=== PATIENT | male | born 1985 | race Caucasian/White ===

== ENCOUNTER 2017-07-20 18:31 | Emergency (ER) | payer OTHER ==
[~2017-07-20] VITALS: Ht 185.4 cm; Wt 72.6 kg
[~2017-07-20 18:31] MED LIST: MIRALAX17 GM PO; NORCO 5-325 TA1 EACH PO; PERCOCET 5-3251 EACH PO; ZOFRAN ODT4 MG PO; ZOFRAN4 MG PO
[2017-07-20] MEDS ORDERED: IBUPROFEN600 MG PO (19:06)
== END 2017-07-20 19:24 | disposition home or self-care (01) ==
LOC: ED 18:31
PROC: 2W3CX1Z Immobilization of Right Lower Arm using Splint (ICD-10-PCS; principal; 2017-07-20)
DX: S62.306A Unspecified fracture of fifth metacarpal bone, right hand, initial encounter for closed fracture (principal); F41.9 Anxiety disorder, unspecified; F17.200 Nicotine dependence, unspecified, uncomplicated; Z90.49 Acquired absence of other specified parts of digestive tract; Z79.899 Other long term (current) drug therapy; W18.30XA Fall on same level, unspecified, initial encounter
CPT/HCPCS: 29125; 73130; 99283

== ENCOUNTER 2022-11-10 20:41 | Emergency (ER) | payer BC, OTHER ==
[~2022-11-10] VITALS: Ht 185.4 cm; Wt 77.1 kg
[~2022-11-10 20:41] MED LIST changes: +IBUPROFEN600 MG PO; +PROTONIX40 MG PO; +ZOFRAN8 MG PO
== END 2022-11-10 23:06 | disposition home or self-care (01) ==
LOC: ED 20:41
DX: R10.31 Right lower quadrant pain (principal); F17.200 Nicotine dependence, unspecified, uncomplicated; Z79.899 Other long term (current) drug therapy
CPT/HCPCS: 36415; 74177; 80053; 81003; 84443; 85025; 99284-25; Q9967

== ENCOUNTER 2025-07-31 11:47 | Day surgery (SDC) | payer BC ==
[~2025-07-31] VITALS: Ht 185.4 cm; Wt 68.0 kg
[~2025-07-31 11:47] MED LIST changes: +IBLOOD GLUCOSE TEST STRIP 1 EA TEST VI PRN; +LACTATED RINGER'S 1,000 ML IV SCH; +LIDOCAINE HCL 1% 5 ML SDV INJ ONE; +TUMS X-STR300 MG PO
[2025-07-31 12:02] VITALS: BP 111/76
[2025-07-31] MEDS ORDERED: GLUCAGON,HUMAN RECOMBINANT 1 MG/ML VIAL ONE (14:09)
[2025-07-31] MEDS ORDERED: LIDOCAINE HCL 2% 5 ML SDV ONE (14:09)
[2025-07-31] MEDS ORDERED: fentaNYL citrate 100 MCG/2 ML VIAL ONE (15:01)
--- NOTE | 2025-07-31 15:53 | NUR ---
07/31/25 1553 Sheets,Cora 1527 PT ARRIVED TO PACU ON 6L VIA MASK, ORAL AIRWAY IN PLACE AND RESP EVEN AND UNLABORED. VSS. 1530 PT STARTS COUGHING AND ORAL AIRWAY REMOVED.
[2025-07-31 16:06] VITALS: BP 115/82
--- NOTE | 2025-08-01 08:46 | OR ---
[facility] [address] [facility] [place], [place] [address] Signed DATE OF OPERATION: 07/31/2025 SURGEON: Paolo Vega DO PREOPERATIVE DIAGNOSES: 1. Crohn's disease by history. 2. Gastroesophageal reflux disease symptoms. POSTOPERATIVE DIAGNOSES: 1. Crohn's disease by history. 2. Gastroesophageal reflux disease symptoms. 3. LA grade B distal esophagitis. 4. Punctate gastritis. 5. Nonspecific colitis. PROCEDURE PERFORMED: 1. Esophagogastroduodenoscopy with biopsy of the GE junction and random gastric biopsy. 2. Colonoscopy with cold forceps biopsy at 35 cm. ANESTHESIA: IV sedation. ESTIMATED BLOOD LOSS: Scant. DRAINS: None. COMPLICATIONS: None. DESCRIPTION OF PROCEDURE: The patient was brought to the GI lab, placed in the supine position. After induction of IV sedation through preanesthetized oropharynx and a bite block, the Olympus video endoscope was introduced into the mouth, directed to the length of esophagus into the distal esophagus. Some LA grade B esophagitis was noted. No ulcerations were appreciated. Random biopsies of the GE junctions were then taken, passed off the field for pathologic review. Scope was then introduced into the stomach. Stomach was insufflated and exploration was then carried out. Some moderate distal gastritis was noted, but no evidence of ulceration was noted. Scope was advanced through the pylorus, Electronically Signed By: PAOLO VEGA DO 08/01/25 0846 PATIENT NAME: JEWELS MARTIN TATI OPERATIVE REPORT DATE OF : 85 REPORT #: [id number] PHYSICIAN: PAOLO VEGA DO PCP: NOHEMY RENE PA-C REPORT IS CONFIDENTIAL AND NOT TO BE RELEASED WITHOUT AUTHORIZATION [facility] [address] [place], [place] [address] Signed 1st and 2nd portion of duodenum essentially unremarkable. Scope was then brought back into the stomach. Random gastric biopsies were taken and passed off for pathologic review. The remainder of the gastric unremarkable. Stomach was decompressed and the scope was withdrawn. The patient was then placed in the left lateral position, padded to the satisfaction of anesthesia. The Olympus video colonoscope was then introduced into the rectum under direct visualization while insufflating and the scope was advanced through the rectosigmoid, sigmoid colon, descending colon, transverse colon, ascending colon and into the cecum. The colon was insufflated and exploration of mucosal surfaces was carried out. The ascending colon and cecum had no intrinsic or extrinsic masses appreciated. Scope was then brought back to the transverse colon. No intrinsic or extrinsic masses were noted. The scope was then brought back into the descending colon, some nonspecific colitis was noted but no ulcerations were appreciated. No other intrinsic or extrinsic masses were appreciated. Scope was brought back into the sigmoid colon where mucus type material was encountered with nonspecific colitis. Random cold forceps biopsies taken at 35 cm, passed off the field for pathologic review. Rectum and the sigmoid were essentially unremarkable other than this mucosal irritation and inflammation. No other intrinsic or extrinsic masses were noted. The rectosigmoid was unremarkable. The rectum was unremarkable. The scope was withdrawn. The patient tolerated the procedure well and taken to recovery room in satisfactory condition. Paolo Vega DO RS/MODL /[id number] Copies: ~ Electronically Signed By: PAOLO VEGA DO 08/01/25 0846 PATIENT NAME: JEWELS MARTIN OPERATIVE REPORT DATE OF : 85 REPORT #: [id number] PHYSICIAN: PAOLO VEGA DO PCP: NOHEMY RENE PA-C REPORT IS CONFIDENTIAL AND NOT TO BE RELEASED WITHOUT AUTHORIZATION
--- NOTE | 2025-08-02 15:48 | PATH ---
[facility] [address] [place], [place] [address] Signed SPECIMEN(S): A EG JUNCTION BIOPSY SPECIMEN(S): B STOMACH BIOPSY SPECIMEN(S): C COLON BIOPSY, 35 CM SPECIMEN SOURCE: A. EG JUNCTION BIOPSY B. STOMACH BIOPSY C. COLON BIOPSY, 35 CM CLINICAL HISTORY: GERD, screening colonoscopy DX: Nonspecific colitis A-C) biopsy FINAL PATHOLOGIC DIAGNOSIS: A. EG junction biopsy: - Benign gastric mucosa with focal slight chronic inflammation. - Negative for specialized intestinal metaplasia or dysplasia. B. Stomach biopsy: - Benign gastric mucosa with focal slight chronic inflammation. - Negative for evidence of Helicobacter organisms on routine HE-stained sections. C. Colon biopsy at 35 cm: - Benign colonic mucosa, negative for pathologic inflammation. JVR MICROSCOPIC EXAMINATION: Histologic sections of all submitted blocks are examined by light microscopy. These findings, together with the gross examination, support the pathologic diagnosis. GROSS DESCRIPTION: A. The specimen, labeled and designated "Adriel, EG junction biopsy," is received in formalin and consists of one khalil soft tissue fragment, 0.3 cm. Entirely submitted in (A1). B. The specimen, labeled and designated "Adriel, stomach biopsy," is received in formalin and consists of one khalil soft tissue fragment, 0.8 cm. Entirely submitted in (B1). C. The specimen, labeled and designated "Adriel, colon biopsy at 35 cm," is received in formalin and consists of one khalil soft tissue fragment, 0.5 cm. Entirely submitted in (C1). AB (under the direct supervision of a pathologist) PATIENT NAME: JEWELS MARTIN PATHOLOGY DATE OF : 85 REPORT #: [id number] PHYSICIAN: JOSE RAFAEL VERA PCP: NOHEMY RENE PA-C REPORT IS CONFIDENTIAL AND NOT TO BE RELEASED WITHOUT AUTHORIZATION [facility] [address] [place], [place] [address] Signed The Gross Description was prepared using a voice recognition system. The report was reviewed for accuracy; however, sound-alike word errors, addition and/or deletions may occur. If there is any question about this report, please contact Client Services. ADDITIONAL NOTES: Immunohistochemical and/or in situ hybridization studies if performed in this case included appropriate positive controls that reacted as expected. This test was developed and its performance characteristics determined by [facility]. It has not been cleared or approved by the U.S. Food and Drug Administration. The FDA has determined that such clearance or approval is not necessary. This test is used for clinical purposes. It should not be regarded as investigational or for research. [facility] is certified under the Clinical Laboratory Improvement Amendments of 1988 (CLIA) as qualified to perform high complexity clinical laboratory testing. PERFORMING LABORATORY: Technical component was performed by [facility], [address] [place] [id number] (CLIA# [id number]). Professional interpretation was performed by [facility] [place] - [address] [place] [address] (CLIA#: [id number]). Diagnostician: Favio Serrano MD Pathologist Electronically Signed 08/02/2025 Copies: ~ PATIENT NAME: JEWELS MARTIN PATHOLOGY DATE OF : 85 REPORT #: [id number] PHYSICIAN: JOSE RAFAEL PATHOLOGY PCP: NOHEMY RENE PA-C REPORT IS CONFIDENTIAL AND NOT TO BE RELEASED WITHOUT AUTHORIZATION
== END 2025-07-31 16:13 ==
LOC: DS 11:47 → OPS 11:47 → DS 14:05 → OPS 16:13
PROVIDERS: ATTEND Surgery
PROC: 0DBN8ZX Excision of Sigmoid Colon, Via Natural or Artificial Opening Endoscopic, Diagnostic (ICD-10-PCS; principal; 2025-07-31 14:05)
PROC: 0DB48ZX Excision of Esophagogastric Junction, Via Natural or Artificial Opening Endoscopic, Diagnostic (ICD-10-PCS; 2025-07-31 14:05)
DX: K50.90 Crohn's disease, unspecified, without complications (principal); K29.50 Unspecified chronic gastritis without bleeding; K21.00 Gastro-esophageal reflux disease with esophagitis, without bleeding; K52.9 Noninfective gastroenteritis and colitis, unspecified; Z79.899 Other long term (current) drug therapy; Z88.5 Allergy status to narcotic agent
CPT/HCPCS: 00813; J1610; J2003; J2704; J3010; J7121